=== PATIENT | female | born 1965 | race Caucasian/White ===

== ENCOUNTER → 2019-01-01 | Outpatient (CLI) | payer OTHER ==
--- NOTE | 2019-01-01 20:20 | REP ---
Left knee series: Five views. History: Left knee pain times 3 weeks. Pain in the left knee. Findings: Five views of the left knee demonstrate moderate three compartment osteoarthritis. There is patellofemoral and medial compartment joint space narrowing and spur formation. Some lateral spurring is also noted. There is fullness in the suprapatellar bursa suggestive of a joint effusion. No erosive changes seen. Impression: Moderate three compartment osteoarthritis of the left knee. Probable joint effusion. Electronically Signed by Collin Munoz MD 01/01/2019 08:35 P
== END ==
LOC: M WUC 17:39
PROVIDERS: ATTEND Physician Assistant
DX: M17.12 Unilateral primary osteoarthritis, left knee (principal)

== ENCOUNTER → 2019-02-13 | Outpatient (CLI) | payer MEDICAID ==
--- NOTE | 2019-02-13 09:44 | REP ---
Right hand four views : There is no fracture or dislocation. Mineralization and joint spaces are normal. There are no calcifications or foreign bodies. Impression: Negative right hand . Electronically Signed by Charles Costello MD 02/13/2019 09:34 A
== END ==
LOC: M LRY 09:25
PROVIDERS: ATTEND Physician Assistant
DX: M25.441 Effusion, right hand (principal)

== ENCOUNTER → 2019-11-11 | Outpatient (REF) | payer MEDICAID, OTHER ==
[2019-11-11 17:27] LABS: PLATELET COUNT, AUTOMATED 344 10^3/uL (150-450)
[2019-11-11 17:39] LABS: COLLAGEN EPINEPHRINE 76 SECONDS (74-162)
[2019-11-11 17:45] LABS: INR 0.95; PROTHROMBIN TIME 12.3 SECONDS (11.8-14.0)
[2019-11-11 17:46] LABS: PARTIAL THROMBOPLASTIN TIME 29.1 SECONDS (25.0-38.4)
== END ==
LOC: M LABDRAW1 15:59
PROVIDERS: ATTEND Physician Assistant
DX: Z01.812 Encounter for preprocedural laboratory examination (principal); M47.27 Other spondylosis with radiculopathy, lumbosacral region

== ENCOUNTER → 2020-02-18 | Outpatient (CLI) | payer OTHER | LOC: M LABSMTC 09:42 | PROVIDERS: ATTEND Physical Medicine & Rehabilitation | DX: Z11.59 Encounter for screening for other viral diseases (principal); Z03.89 Encounter for observation for other suspected diseases and conditions ruled out ==

== ENCOUNTER → 2020-04-19 | Outpatient (CLI) | payer OTHER | LOC: M LABSMTC 09:56 | PROVIDERS: ATTEND Physical Medicine & Rehabilitation | DX: Z03.818 Encounter for observation for suspected exposure to other biological agents ruled out (principal); Z11.59 Encounter for screening for other viral diseases | CPT/HCPCS: C9803; U0003 ==

== ENCOUNTER → 2022-02-20 | Outpatient (CLI) | payer OTHER | LOC: M SOG 08:26 | PROVIDERS: ATTEND Orthopaedic Surgery Adult Reconstructive Orthopaedic Surgery | DX: M25.562 Pain in left knee (principal); M17.0 Bilateral primary osteoarthritis of knee ==

== ENCOUNTER → 2022-03-11 | Outpatient (CLI) | payer OTHER ==
[~2022-03-11] MED LIST: BUPIVACAINE HCL 0.5% 30ML VIAL As Ordered ONE; ISOVUE-300 61% 50ML VIAL As Ordered ONE; LIDOCAINE 1% MDV 20ML VIAL As Ordered ONE; methylPREDNISolone 80MG/ML SUSP 1ML VIAL (J1040) As Ordered ONE
== END ==
LOC: M RADPRO 10:12
PROVIDERS: ATTEND Orthopaedic Surgery Adult Reconstructive Orthopaedic Surgery
DX: M17.0 Bilateral primary osteoarthritis of knee (principal)
CPT/HCPCS: 20610; 76000; J1040; Q9967

== ENCOUNTER → 2022-03-20 | Outpatient (CLI) | payer OTHER | LOC: M RADPRO 10:58 | PROVIDERS: ATTEND Orthopaedic Surgery Adult Reconstructive Orthopaedic Surgery | DX: M17.0 Bilateral primary osteoarthritis of knee (principal) | CPT/HCPCS: 20610; 76000; J1040; Q9967 ==

== ENCOUNTER → 2023-06-30 | Outpatient (CLI) | payer OTHER | LOC: M RAD 07:23 | PROVIDERS: ATTEND Physician Assistant | DX: Z12.2 Encounter for screening for malignant neoplasm of respiratory organs (principal); F17.200 Nicotine dependence, unspecified, uncomplicated ==

== ENCOUNTER 2023-10-14 13:37 | Outpatient (CLI) | payer OTHER ==
[~2023-10-14] VITALS: Ht 165.1 cm; Wt 123.0 kg
[~2023-10-14 13:37] MED LIST changes: +AMLO1TAB25; -BUPIVACAINE HCL 0.5% 30ML VIAL As Ordered ONE; +FERR32TA; +GABA-282; -ISOVUE-300 61% 50ML VIAL As Ordered ONE; -LIDOCAINE 1% MDV 20ML VIAL As Ordered ONE; +LOSA100T46; +METF500T13; +METO1TAB33; +OMEP40CA5; +ROSU5TAB5; +TIRZ2.5P; -methylPREDNISolone 80MG/ML SUSP 1ML VIAL (J1040) As Ordered ONE
[2023-10-14 14:00] VITALS: BP 138/63; O2SAT 96
[2023-10-14 14:15] LABS: HEMATOCRIT 34.4 % (36.0-47.0); HEMOGLOBIN 10.6 g/dl (12.0-15.5); MEAN CORPUSCULAR HEMOGLOBIN 24.5 pg (27.0-33.0); MEAN CORPUSCULAR HGB CONC 30.8 g/dl (32.0-36.5); MEAN CORPUSCULAR VOLUME 79.4 fl (80.0-96.0); PLATELET COUNT, AUTOMATED 371 10^3/uL (150-450); RED BLOOD COUNT 4.33 10^6/uL (4.00-5.40); WHITE BLOOD COUNT 8.6 10^3/uL (4.0-10.0)
[2023-10-14] MEDS: IRON SUCROSE 200 MG in NS 100 ML IV ONE (14:50)
[2023-10-14 15:50] VITALS: BP 129/62; O2SAT 100
== END 2023-10-14 15:50 ==
LOC: M INFU 13:37
PROVIDERS: ATTEND Internal Medicine Hematology & Oncology
DX: D50.9 Iron deficiency anemia, unspecified (principal)
CPT/HCPCS: 36592; 82728; 85027; 96365; J1756

== ENCOUNTER 2023-10-28 14:05 | Outpatient (CLI) | payer OTHER ==
[~2023-10-28] VITALS: Ht 165.1 cm; Wt 122.7 kg
[2023-10-28 14:05] VITALS: BP 113/67; O2SAT 100
[2023-10-28] MEDS: IRON SUCROSE 200 MG in NS 100 ML IV ONE (14:31)
[2023-10-28 15:35] VITALS: BP 128/58; O2SAT 99
== END 2023-10-28 15:45 | disposition home or self-care (01) ==
LOC: M INFU 14:05
PROVIDERS: ATTEND Internal Medicine Hematology & Oncology
DX: D50.9 Iron deficiency anemia, unspecified (principal)
CPT/HCPCS: 96365; J1756

== ENCOUNTER 2023-12-02 13:25 | Outpatient (CLI) | payer OTHER ==
[~2023-12-02] VITALS: Ht 165.1 cm; Wt 118.6 kg
[2023-12-02 13:25] VITALS: BP 115/59; O2SAT 100
[2023-12-02] MEDS: IRON SUCROSE 200 MG in NS 100 ML OVER 1 HR IV ONE (13:32)
[2023-12-02 14:40] VITALS: BP 116/63; O2SAT 100
== END 2023-12-02 14:45 | disposition home or self-care (01) ==
LOC: M INFU 13:25
PROVIDERS: ATTEND Internal Medicine Medical Oncology
DX: D50.9 Iron deficiency anemia, unspecified (principal)
CPT/HCPCS: 96365; J1756

== ENCOUNTER 2023-12-09 13:30 | Outpatient (CLI) | payer OTHER ==
[~2023-12-09] VITALS: Ht 165.1 cm; Wt 118.5 kg
[2023-12-09 13:30] VITALS: BP 132/67; O2SAT 97
[2023-12-09] MEDS: IRON SUCROSE 200 MG in NS 100 ML OVER 1 HR IV ONE (13:37)
[2023-12-09 14:45] VITALS: BP 128/65; O2SAT 98
== END 2023-12-09 14:45 | disposition home or self-care (01) ==
LOC: M INFU 13:30
PROVIDERS: ATTEND Internal Medicine Medical Oncology
DX: D50.9 Iron deficiency anemia, unspecified (principal)
CPT/HCPCS: 96365; J1756

== ENCOUNTER 2023-12-16 08:17 | Outpatient (CLI) | payer OTHER ==
[~2023-12-16] VITALS: Ht 167.6 cm; Wt 118.2 kg
[2023-12-16 08:25] VITALS: BP 147/62; O2SAT 99
[2023-12-16] MEDS: IRON SUCROSE 200 MG in NS 100 ML OVER 1 HR IV ONE (08:50)
[2023-12-16 09:50] VITALS: BP 129/76; O2SAT 100
== END 2023-12-16 09:55 ==
LOC: M INFU 08:17
PROVIDERS: ATTEND Internal Medicine Medical Oncology
DX: D50.9 Iron deficiency anemia, unspecified (principal)
CPT/HCPCS: 96365; J1756